=== PATIENT | male | born 1950 | race Caucasian/White ===

== ENCOUNTER 2016-12-18 11:18 | Emergency (ER) | payer MEDICARE, MEDICAID ==
--- NOTE | 2016-12-18 11:59 | EDDOCDS ---
Physician Documentation [facility] Name: Pepe Jacobs Age: 66 yrs Sex: Male : 1950 Arrival Date: 12/18/2016 Time: 11:18 Bed TR8 Private MD: SHYANN Disposition: 12/18/16 11:52 Discharged to Home/Self Care. Impression: Diseases of lips - skin growth. - Condition is Stable. - Discharge Instructions: Excision of Skin Lesions. - Medication Reconciliation form. - Follow up: Toney Steward; When: Call to arrange an appointment; Reason: Recheck today's complaints, Continuance of care, surgical removal. - Problem is an ongoing problem. - Symptoms are unchanged. Historical: - Allergies: no known allergies; - Home Meds: 1. none - PMHx: none; - PSHx: HERNIA REPAIR; - Social history: Smoking status: Patient states former smoker of tobacco. No barriers to communication noted, The patient speaks fluent Syriac, Speaks appropriately for age. - Family history: Not pertinent. - : The pt / caregiver states he / she is not on anticoagulants. Home medication list is obtained from the patient. - Exposure Risk Screening:: None identified. Vital Signs: 12/18 11:19 BP 155 / 85; Pulse 83; Resp 18 S; Temp 98.1(O); Pulse Ox 96% on R/A; Weight 102.06 kg / dd6 225 lbs (R); Height 5 ft. 10 in. (177.80 cm) (R); 11:19 Body Mass Index 32.28 (102.06 kg, 177.80 cm) dd6 MDM: 11:51 Financial registration complete. lg Signatures: Michelle Rod, RN RN Dago Flores, Reg Reg lg Andressa Pink RN RN jo3 Coniski, Colin, PA-C PA-C cc10 MTDD
--- NOTE | 2016-12-18 12:00 | EDDOCDS ---
Nurse's Notes [facility] Name: Pepe Jacobs Age: 66 yrs Sex: Male : 1950 Arrival Date: 12/18/2016 Time: 11:18 Bed TR8 Private MD: SHYANN Diagnosis: Diseases of lips-skin growth Presentation: 12/18 11:22 Presenting complaint: Patient states: Has a small growth to the right lower lip that is jo3 bothering him. Hoping that we can just numb it and cut it off. In between PCPs at this time. Adult Sepsis Screening: The patient does not have new or worsening altered mentation. Patient's respiratory rate is less than 22. Systolic blood pressure is greater than 100. Patient has a qSOFA score of 0- Negative Sepsis Screen. Suicide/Homicide risk assessment- the patient denies having any suicidal and/or homicidal ideations and does not present with any other emotional, behavioral or mental health complaints. Status: Patient is not a manager of allied health services or dependent. Transition of care: patient was not received from another setting of care. 11:22 Acuity: TERRANCE Level 4 jo3 11:22 Method Of Arrival: Walkin/Carried/Asstd jo3 Triage Assessment: 11:24 General: Appears in no apparent distress, Behavior is appropriate for age, cooperative. jo3 Pain: Denies pain. Neurological: No deficits noted. Level of Consciousness is awake, alert, Oriented to person, place, time. Respiratory: Airway is patent Respiratory effort is even, unlabored. Derm: Skin is pink, warm & dry. Injury Description: No known injury. Historical: - Allergies: no known allergies; - Home Meds: 1. none - PMHx: none; - PSHx: HERNIA REPAIR; - Social history: Smoking status: Patient states former smoker of tobacco. No barriers to communication noted, The patient speaks fluent Belarusian, Speaks appropriately for age. - Family history: Not pertinent. - : The pt / caregiver states he / she is not on anticoagulants. Home medication list is obtained from the patient. - Exposure Risk Screening:: None identified. Screenin:58 Screening information is obtained from the patient. Fall risk: No risks identified. srm Assistance ADL's: requires no assistance with activities of daily living. Abuse/DV Screen: The patient / caregiver reports he/she is: not in a situation that causes fear, pain or injury. Nutritional screening: No deficits noted. Advance Directives: There is no active DNR order. home support is adequate. Assessment: 11:57 General: Appears in no apparent distress, Behavior is appropriate for age, cooperative. srm Respiratory: No deficits noted. Derm: small red raised rash to right lip. Vital Signs: 11:19 BP 155 / 85; Pulse 83; Resp 18 S; Temp 98.1(O); Pulse Ox 96% on R/A; Weight 102.06 kg dd6 (R); Height 5 ft. 10 in. (177.80 cm) (R); 11:19 Body Mass Index 32.28 (102.06 kg, 177.80 cm) dd6 Vitals: 11:19 Log In Time: December 18, 2016 at 11:17. dd6 ED Course: 11:19 Patient visited by Erwin Larson PCA. dd6 11:19 NONE is Private Physician. dd6 11:19 Patient moved to Waiting dd6 11:20 Patient moved to Pre RCE dd6 11:23 Triage Initiated jo3 11:25 Patient visited by Andressa Pink RN. jo3 11:25 Patient moved to Triage 3 jo3 11:35 [facility] cc10 11:35 Caren Ruiz MD is Attending Physician. cc10 11:46 Patient visited by Loco Jackson PA-C. cc10 11:46 Patient visited by Loco Jackson PA-C. cc10 11:51 Toney Steward is Referral Physician. cc10 11:58 Patient moved to TR8 jb5 11:58 The patient / caregiver is instructed regarding the plan of care and ED course. Patient srm has correct armband on for positive identification. 11:58 No IV's were initiated during this patient's visit. No procedures done that require srm assistance. Order Results: There are currently no results for this order. Outcome: 11:52 Discharge ordered by Provider. cc10 11:58 Discharge Assessment: Patient awake, alert and oriented x 3. No cognitive and/or srm functional deficits noted. Patient verbalized understanding of disposition instructions. patient administered narcotics - no. The following High Risk Discharge criteria are identified: None. Discharged to home ambulatory. Condition: good Condition: stable. Discharge instructions given to patient, Instructed on discharge instructions, follow up and referral plans. Demonstrated understanding of instructions, Pt was receptive of discharge instructions/ teaching. No special radiology studies were completed. Property :Personal belongings accompany Pt. 11:59 Patient left the ED. srm Signatures: Michelle Rod, RN Clarissa Amaro, MASSAGE THERAPIST MASSAGE THERAPIST jb5 Andressa Pink RN RN jo3 Erwin Larson, [facility] MASSAGE THERAPIST dd6 Loco Jackson, PA-C PA-C cc10 MTDD
--- NOTE | 2016-12-20 13:00 | EDDOCDS ---
Nurse's Notes [facility] Name: Pepe Jacobs Age: 66 yrs Sex: Male : 1950 Arrival Date: 12/18/2016 Time: 11:18 Bed TR8 Private MD: SHYANN Diagnosis: Diseases of lips-skin growth Presentation: 12/18 11:22 Presenting complaint: Patient states: Has a small growth to the right lower lip that is jo3 bothering him. Hoping that we can just numb it and cut it off. In between PCPs at this time. Adult Sepsis Screening: The patient does not have new or worsening altered mentation. Patient's respiratory rate is less than 22. Systolic blood pressure is greater than 100. Patient has a qSOFA score of 0- Negative Sepsis Screen. Suicide/Homicide risk assessment- the patient denies having any suicidal and/or homicidal ideations and does not present with any other emotional, behavioral or mental health complaints. 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 Transition of care: patient was not received from another setting of care. 11:22 Acuity: TERRANCE Level 4 jo3 11:22 Method Of Arrival: Walkin/Carried/Asstd jo3 Triage Assessment: 11:24 General: Appears in no apparent distress, Behavior is appropriate for age, cooperative. jo3 Pain: Denies pain. Neurological: No deficits noted. Level of Consciousness is awake, alert, Oriented to person, place, time. Respiratory: Airway is patent Respiratory effort is even, unlabored. Derm: Skin is pink, warm & dry. Injury Description: No known injury. Historical: - Allergies: no known allergies; - Home Meds: 1. none - PMHx: none; - PSHx: HERNIA REPAIR; - Social history: Smoking status: Patient states former smoker of tobacco. No barriers to communication noted, The patient speaks fluent Uzbek, Speaks appropriately for age. - Family history: Not pertinent. - : The pt / caregiver states he / she is not on anticoagulants. Home medication list is obtained from the patient. - Exposure Risk Screening:: None identified. Screenin:58 Screening information is obtained from the patient. Fall risk: No risks identified. srm Assistance ADL's: requires no assistance with activities of daily living. Abuse/DV Screen: The patient / caregiver reports he/she is: not in a situation that causes fear, pain or injury. Nutritional screening: No deficits noted. Advance Directives: There is no active DNR order. home support is adequate. Assessment: 11:57 General: Appears in no apparent distress, Behavior is appropriate for age, cooperative. srm Respiratory: No deficits noted. Derm: small red raised rash to right lip. Vital Signs: 11:19 BP 155 / 85; Pulse 83; Resp 18 S; Temp 98.1(O); Pulse Ox 96% on R/A; Weight 102.06 kg dd6 (R); Height 5 ft. 10 in. (177.80 cm) (R); 11:19 Body Mass Index 32.28 (102.06 kg, 177.80 cm) dd6 Vitals: 11:19 Log In Time: December 18, 2016 at 11:17. dd6 ED Course: 11:19 Patient visited by Erwin Larson PCA. dd6 11:19 NONE is Private Physician. dd6 11:19 Patient moved to Waiting dd6 11:20 Patient moved to Pre RCE dd6 11:23 Triage Initiated jo3 11:25 Patient visited by Andressa Pink RN. jo3 11:25 Patient moved to Triage 3 jo3 11:35 Loco Jackson PA-C [facility] cc10 11:35 Caren Ruiz MD is Attending Physician. cc10 11:46 Patient visited by Loco Jackson PA-C. cc10 11:46 Patient visited by Loco Jackson PA-C. cc10 11:51 Toney Steward is Referral Physician. cc10 11:58 Patient moved to TR8 jb5 11:58 The patient / caregiver is instructed regarding the plan of care and ED course. Patient srm has correct armband on for positive identification. 11:58 No IV's were initiated during this patient's visit. No procedures done that require srm assistance. 13:18 T-Sheet-- Draft Copy was scanned into [employer] and attached to record. gb 13:23 [facility] Payment Agreement was scanned into [employer] and attached to record. lg Order Results: There are currently no results for this order. Outcome: 11:52 Discharge ordered by Provider. cc10 11:58 Discharge Assessment: Patient awake, alert and oriented x 3. No cognitive and/or srm functional deficits noted. Patient verbalized understanding of disposition instructions. patient administered narcotics - no. The following High Risk Discharge criteria are identified: None. Discharged to home ambulatory. Condition: good Condition: stable. Discharge instructions given to patient, Instructed on discharge instructions, follow up and referral plans. Demonstrated understanding of instructions, Pt was receptive of discharge instructions/ teaching. No special radiology studies were completed. Property :Personal belongings accompany Pt. 11:59 Patient left the ED. srm Signatures: Michelle Rod, RN RN srm Tayler Salcido, Reg Reg gb Dago Okeefe, Reg Reg lg Clarissa Mccormack, TUNNEL ELASTIC OPERATOR [employer] TUNNEL ELASTIC OPERATOR [employer]IG[employer] jb5 Andressa PinkRN RN jo3 Erwin Larson, TUNNEL ELASTIC OPERATOR [employer] TUNNEL ELASTIC OPERATOR [employer] dd6 Loco Jackson, PA-C PA-C cc10 Chart Complete MTDD
--- NOTE | 2016-12-20 13:00 | EDDOCDS ---
Physician Documentation [facility] Name: Pepe Jacobs Age: 66 yrs Sex: Male : 1950 Arrival Date: 12/18/2016 Time: 11:18 Bed TR8 Private MD: NONE Disposition: 12/18/16 11:52 Discharged to Home/Self Care. Impression: Diseases of lips - skin growth. - Condition is Stable. - Discharge Instructions: Excision of Skin Lesions. - Medication Reconciliation form. - Follow up: Toney Steward; When: Call to arrange an appointment; Reason: Recheck today's complaints, Continuance of care, surgical removal. - Problem is an ongoing problem. - Symptoms are unchanged. Historical: - Allergies: no known allergies; - Home Meds: 1. none - PMHx: none; - PSHx: HERNIA REPAIR; - Social history: Smoking status: Patient states former smoker of tobacco. No barriers to communication noted, The patient speaks fluent Mongolian, Speaks appropriately for age. - Family history: Not pertinent. - : The pt / caregiver states he / she is not on anticoagulants. Home medication list is obtained from the patient. - Exposure Risk Screening:: None identified. Vital Signs: 12/18 11:19 BP 155 / 85; Pulse 83; Resp 18 S; Temp 98.1(O); Pulse Ox 96% on R/A; Weight 102.06 kg / dd6 225 lbs (R); Height 5 ft. 10 in. (177.80 cm) (R); 11:19 Body Mass Index 32.28 (102.06 kg, 177.80 cm) dd6 MDM: 11:51 Financial registration complete. lg 13:18 T-Sheet-- Draft Copy was scanned into [employer] and attached to record. gb 13:23 [facility] Payment Agreement was scanned into [employer] and attached to record. lg Signatures: Michelle Rod, RN Tayler Engle, Reg Reg gb Dago Okeefe, Reg Reg lg Andressa Pink RN RN jo3 Coniski, Colin, PA-C PA-C cc10 The chart was reviewed and I authenticate all verbal orders and agree with the evaluation and treatment provided.Attachments: 13:18 T-Sheet-- Draft Copy gb 13:23 [facility] Payment Agreement lg Chart Complete MTDD
--- NOTE | 2016-12-20 13:00 | EDDOCDS ---
Physician Documentation [facility] Name: Pepe Jacobs Age: 66 yrs Sex: Male : 1950 Arrival Date: 12/18/2016 Time: 11:18 Bed TR8 Private MD: NONE Disposition: 12/18/16 11:52 Discharged to Home/Self Care. Impression: Diseases of lips - skin growth. - Condition is Stable. - Discharge Instructions: Excision of Skin Lesions. - Medication Reconciliation form. - Follow up: Toney Steward; When: Call to arrange an appointment; Reason: Recheck today's complaints, Continuance of care, surgical removal. - Problem is an ongoing problem. - Symptoms are unchanged. Historical: - Allergies: no known allergies; - Home Meds: 1. none - PMHx: none; - PSHx: HERNIA REPAIR; - Social history: Smoking status: Patient states former smoker of tobacco. No barriers to communication noted, The patient speaks fluent Ukrainian, Speaks appropriately for age. - Family history: Not pertinent. - : The pt / caregiver states he / she is not on anticoagulants. Home medication list is obtained from the patient. - Exposure Risk Screening:: None identified. Vital Signs: 12/18 11:19 BP 155 / 85; Pulse 83; Resp 18 S; Temp 98.1(O); Pulse Ox 96% on R/A; Weight 102.06 kg / dd6 225 lbs (R); Height 5 ft. 10 in. (177.80 cm) (R); 11:19 Body Mass Index 32.28 (102.06 kg, 177.80 cm) dd6 MDM: 11:51 Financial registration complete. lg 13:18 T-Sheet-- Draft Copy was scanned into [employer] and attached to record. gb 13:23 [facility] Payment Agreement was scanned into [employer] and attached to record. lg Signatures: Michelle Rod, RN Tayler Engle, Reg Reg gb Dago Okeefe, Reg Reg lg Andressa Pink RN RN jo3 Coniski, Colin, PA-C PA-C cc10 The chart was reviewed and I authenticate all verbal orders and agree with the evaluation and treatment provided.Attachments: 13:18 T-Sheet-- Draft Copy gb 13:23 [facility] Payment Agreement lg Chart Complete MTDD
== END 2016-12-18 11:59 | disposition home or self-care (01) ==
LOC: M ED 11:18
DX: K13.0 Diseases of lips (principal); Z87.891 Personal history of nicotine dependence

== ENCOUNTER → 2017-02-05 | Outpatient (REF) | payer MEDICARE, MEDICAID | LOC: M SFHCPLAZ 13:07 | PROVIDERS: ATTEND Family Medicine | DX: C44.320 Squamous cell carcinoma of skin of unspecified parts of face (principal) ==

== ENCOUNTER 2017-11-19 13:25 | Emergency (ER) | payer MEDICARE, MEDICAID | END 2017-11-19 14:15 | disposition home or self-care (01) | LOC: M ED 13:25 | DX: D23.61 Other benign neoplasm of skin of right upper limb, including shoulder (principal); Z85.828 Personal history of other malignant neoplasm of skin; Z98.890 Other specified postprocedural states | CPT/HCPCS: 99282 ==

== ENCOUNTER → 2018-03-17 | Outpatient (CLI) | payer MEDICARE, MEDICAID | LOC: M ADAMS 11:18 | DX: M50.30 Other cervical disc degeneration, unspecified cervical region (principal) | CPT/HCPCS: 72050 ==

== ENCOUNTER → 2019-01-16 | Outpatient (CLI) | payer MEDICARE, MEDICAID ==
[~2019-01-16] MED LIST: E-Z-GAS II EFFERVESCENT PACKET (SODIUM BICARB./CITRIC ACID/SIMETHICONE) As Ordered ONE; E-Z-HD 98% w/w 340GM SUSP BTL As Ordered ONE; E-Z-PAQUE 96% w/w SUSP 176GM BTL As Ordered ONE
--- NOTE | 2019-01-16 11:43 | REP ---
Upper GI series: Single contrast study. History: Epigastric pain. Findings: Preliminary digital advance scout radiograph shows some vascular calcification and mild degenerative spondylosis changes in the lumbar spine. The bowel gas pattern is normal. Psoas margins and flank stripes are intact. Upper GI series demonstrates mucosal irregularity and subtle narrowing of the distal esophagus consistent with reflux esophagitis with some mucosal ulceration. There is a small sliding-type hiatal hernia. No definite mass lesion is observed. There was gastroesophageal reflux to the middle third of the thoracic esophagus. The stomach displays normal rugal folds and a normal mucosal pattern. No mass or ulcer seen. Duodenal bulb is fully distensible and clear. C-loop and remainder of the visualized small bowel are unremarkable. Impression: Small sliding-type hiatal hernia. Gastroesophageal reflux. Evidence of moderate reflux esophagitis with slight narrowing and mucosal irregularity suggesting ulceration of the distal esophagus. Consider upper endoscopy. The fluoroscopy time is 0.3 minutes. Electronically Signed by Abdi Rosenthal MD 01/16/2019 01:27 P
== END ==
LOC: M RAD 09:25
PROVIDERS: ATTEND Nurse Practitioner Family
DX: K44.9 Diaphragmatic hernia without obstruction or gangrene (principal); K21.0 Gastro-esophageal reflux disease with esophagitis; R10.13 Epigastric pain

== ENCOUNTER → 2020-06-09 | Outpatient (CLI) | payer MEDICARE, MEDICAID | LOC: M LABSMTC 08:46 | PROVIDERS: ATTEND Anesthesiology | DX: Z01.818 Encounter for other preprocedural examination (principal); Z11.59 Encounter for screening for other viral diseases; Z20.828 Contact with and (suspected) exposure to other viral communicable diseases | CPT/HCPCS: C9803; U0003 ==

== ENCOUNTER → 2022-12-23 | Outpatient (CLI) | payer MEDICARE, MEDICAID ==
[2022-12-23 10:21] LABS: BASO % 0.4 % (0.0-1.0); EOS # 0.2 10^3/uL (0.0-0.5); HEMATOCRIT 49.8 % (42.0-52.0); HEMOGLOBIN 16.2 g/dl (13.5-17.5); LYMPH # 1.2 10^3/uL (1.5-5.0); LYMPH % 15.6 % (24.0-44.0); MEAN CORPUSCULAR HEMOGLOBIN 30.3 pg (27.0-33.0); MEAN CORPUSCULAR HGB CONC 32.5 g/dl (32.0-36.5); MEAN CORPUSCULAR VOLUME 93.1 fl (80.0-96.0); MONO # 0.9 10^3/uL (0.0-0.8); MONO % 11.8 % (2.0-8.0); NEUTROPHILS # 5.3 10^3/uL (1.5-8.5); NEUTROPHILS % 69.8 % (36.0-66.0); PLATELET COUNT, AUTOMATED 154 10^3/uL (150-450); RED BLOOD COUNT 5.35 10^6/uL (4.30-6.10); WHITE BLOOD COUNT 7.6 10^3/uL (4.0-10.0)
[2022-12-23 10:46] LABS: ALBUMIN 3.7 G/DL (3.2-5.2); ALKALINE PHOSPHATASE 116 U/L (46-116); ALT/SGPT 75 U/L (7.0-40); AST/SGOT 38 U/L (<34); BILIRUBIN,TOTAL 0.5 MG/DL (0.3-1.2); BLOOD UREA NITROGEN 18 MG/DL (9-23); CALCIUM LEVEL 9.3 MG/DL (8.3-10.6); CARBON DIOXIDE LEVEL 30 MMOL/L (20-31); CHLORIDE LEVEL 105 MMOL/L (98-107); CREATININE FOR GFR 0.85 MG/DL (0.70-1.30); GLOMERULAR FILTRATION RATE > 60.0 (>42); GLUCOSE, FASTING 120 MG/DL (74-106); POTASSIUM SERUM 5.1 MMOL/L (3.5-5.1); SODIUM LEVEL 142 MMOL/L (136-145); TOTAL PROTEIN 7.2 G/DL (5.7-8.2)
[2022-12-23 10:51] LABS: THYROID STIMULATING HORMONE 1.147 uIU/ML (0.55-4.78)
== END ==
LOC: M PLALAB 08:40
PROVIDERS: ATTEND Family Medicine
DX: R53.83 Other fatigue (principal)

== ENCOUNTER → 2023-03-04 | Outpatient (CLI) | payer MEDICARE, MEDICAID | LOC: M RAD 07:11 | PROVIDERS: ATTEND Family Medicine | DX: Z87.891 Personal history of nicotine dependence (principal) ==

== ENCOUNTER 2023-03-31 10:35 | Emergency (ER) | payer MEDICARE, MEDICAID ==
[~2023-03-31] VITALS: Ht 177.8 cm; Wt 112.0 kg
[2023-03-31] MEDS ORDERED: ASPIRIN 81MG CHEW TABLET PO ONE (11:25)
[2023-03-31 11:58] LABS: BASO % 0.4 % (0.0-1.0); EOS # 0.1 10^3/uL (0.0-0.5); HEMOGLOBIN 16.5 g/dl (13.5-17.5); LYMPH # 1.3 10^3/uL (1.5-5.0); LYMPH % 17.8 % (24.0-44.0); MEAN CORPUSCULAR HEMOGLOBIN 30.6 pg (27.0-33.0); MEAN CORPUSCULAR HGB CONC 33.7 g/dl (32.0-36.5); MEAN CORPUSCULAR VOLUME 90.9 fl (80.0-96.0); MONO # 0.9 10^3/uL (0.0-0.8); MONO % 12.6 % (2.0-8.0); NEUTROPHILS # 4.7 10^3/uL (1.5-8.5); NEUTROPHILS % 66.9 % (36.0-66.0); PLATELET COUNT, AUTOMATED 196 10^3/uL (150-450); RED BLOOD COUNT 5.39 10^6/uL (4.30-6.10)
[2023-03-31 12:10] LABS: INR 0.96
[2023-03-31 12:11] LABS: PARTIAL THROMBOPLASTIN TIME 30.2 SECONDS (24.8-34.2)
[2023-03-31 12:19] LABS: FREE T4 0.98 NG/DL (0.89-1.76)
[2023-03-31 12:21] LABS: ALBUMIN 3.6 G/DL (3.2-5.2); ALKALINE PHOSPHATASE 93 U/L (46-116); ALT/SGPT 69 U/L (7.0-40); AST/SGOT 57 U/L (<34); BILIRUBIN,DIRECT 0.1 MG/DL (<0.4); BILIRUBIN,TOTAL 0.6 MG/DL (0.3-1.2); BLOOD UREA NITROGEN 18 MG/DL (9-23); CALCIUM LEVEL 8.5 MG/DL (8.3-10.6); CARBON DIOXIDE LEVEL 29 MMOL/L (20-31); CHLORIDE LEVEL 105 MMOL/L (98-107); CK-MB VALUE MASS 1.5 NG/ML (<3.6); CPK CREATINE PHOSPHOKINASE 92 U/L (46-171); CREATININE FOR GFR 0.86 MG/DL (0.70-1.30); GLOMERULAR FILTRATION RATE > 60.0 (>42); GLUCOSE, FASTING 114 MG/DL (74-106); LIPASE 43 U/L (12-53); MB/CK RELATIVE INDEX 1.63 (< OR =4); SODIUM LEVEL 140 MMOL/L (136-145); TOTAL PROTEIN 7.1 G/DL (5.7-8.2)
[2023-03-31 12:29] LABS: POTASSIUM SERUM 5.5 MMOL/L (3.5-5.1)
[2023-03-31 13:18] LABS: CK-MB VALUE MASS 1.8 NG/ML (<3.6)
[2023-03-31 13:21] LABS: MB/CK RELATIVE INDEX 2.27 (< OR =4)
[2023-03-31] MEDS ORDERED: ISOVUE-370 76% 100ML VIAL As Ordered ONE (14:44)
[2023-03-31 15:12] LABS: CK-MB VALUE MASS 1.5 NG/ML (<3.6)
[2023-03-31 15:14] LABS: MB/CK RELATIVE INDEX 2.41 (< OR =4)
[2023-03-31 16:15] VITALS: BP 166/80
[2023-03-31] MEDS ORDERED: ASPI81TA26 PO (16:16)
[2023-03-31] MEDS ORDERED: METO25TA4 PO (16:16)
== END 2023-03-31 16:47 | disposition left against medical advice (07) ==
LOC: M ED 10:35
DX: R07.9 Chest pain, unspecified (principal); Z79.899 Other long term (current) drug therapy
CPT/HCPCS: 36415; 71045; 71275; 80048; 80076; 82550; 82553; 83690; 84439; 84443; 84484; 85025; 85610; 85730; 93005; 93041; 94760; 99285; Q9967

== ENCOUNTER → 2023-04-28 | Outpatient (CLI) | payer MEDICARE, MEDICAID ==
[~2023-04-28] MED LIST changes: +ASPI81TA26 PO; -E-Z-GAS II EFFERVESCENT PACKET (SODIUM BICARB./CITRIC ACID/SIMETHICONE) As Ordered ONE; -E-Z-HD 98% w/w 340GM SUSP BTL As Ordered ONE; -E-Z-PAQUE 96% w/w SUSP 176GM BTL As Ordered ONE; +ISOVUE-370 76% 100ML VIAL As Ordered ONE; +METO25TA4 PO
== END ==
LOC: M RAD 14:59
PROVIDERS: ATTEND Family Medicine
DX: D44.10 Neoplasm of uncertain behavior of unspecified adrenal gland (principal)
CPT/HCPCS: 74170; Q9967

== ENCOUNTER → 2023-06-03 | Outpatient (CLI) | payer MEDICARE, MEDICAID ==
[~2023-06-03] MED LIST changes: -ISOVUE-370 76% 100ML VIAL As Ordered ONE
== END ==
LOC: M RADPRO 09:59
PROVIDERS: ATTEND Internal Medicine Critical Care Medicine
DX: J98.6 Disorders of diaphragm (principal)